=== PATIENT | female | born 2000 | race Caucasian/White ===

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

== ENCOUNTER → 2025-05-17 | Outpatient (CLI) | payer MEDICAID, OTHER, SELFPAY ==
[2025-05-17 11:39] VITALS: TEMP 98.8
[2025-05-17 12:21] VITALS: BP 128/70; O2SAT 100
== END ==
LOC: M WHCPRO 11:37
PROVIDERS: ATTEND Surgery
DX: D24.1 Benign neoplasm of right breast (principal)
CPT/HCPCS: 19285; C1739